=== PATIENT | male | born 1980 | race Caucasian/White ===

== ENCOUNTER → 2018-08-12 | Outpatient (CLI) | payer OTHER | LOC: COL.RAD 07-19 07:30 | DX: M99.71 Connective tissue and disc stenosis of intervertebral foramina of cervical region (principal); M47.22 Other spondylosis with radiculopathy, cervical region; M48.02 Spinal stenosis, cervical region ==

== ENCOUNTER → 2018-09-07 | Outpatient (CLI) | payer OTHER | LOC: MHCPAIN 14:18 | DX: G89.29 Other chronic pain (principal); M54.12 Radiculopathy, cervical region; M47.812 Spondylosis without myelopathy or radiculopathy, cervical region; M48.02 Spinal stenosis, cervical region | CPT/HCPCS: G0463 ==

== ENCOUNTER 2018-11-25 17:39 | Emergency (ER) | payer OTHER ==
[~2018-11-25] VITALS: Ht 167.6 cm; Wt 68.6 kg
[2018-11-25 17:42] VITALS: TEMP 98
[2018-11-25] MEDS ORDERED: PRINIVIL20 MG PO (18:07)
[2018-11-25] MEDS ORDERED: ANTIVERT 25MG25 MG PO (18:52)
[2018-11-25 19:42] LABS: BASO # 0.1 (0.0-0.2); BASO % 0.9 % (0.0-2.0); EOS # 0.1 (0.0-0.7); EOS % 1.1 % (0-4.0); GRAN # 5.5 (1.4-6.5); GRAN % 54.6 % (42.2-75.2); HEMATOCRIT 45.2 % (42.0-52.0); LYMPH # 3.1 (1.2-3.4); LYMPH % 30.4 % (20.0-51.0); MEAN CELL VOLUME 85 fl (80.0-100.0); MEAN CORPUSCULAR HEMOGLOBIN 28 pg (27.0-31.0); MEAN CORPUSCULAR HGB CONC 33 g/dl (33.0-37.0); MEAN PLATELET VOLUME 10.4 fl (7.4-10.4); MONO # 1.1 (0.1-0.6); MONO % 11.1 % (1.7-9.3); PLATELET COUNT 321 K/mm3 (130-400); RED BLOOD COUNT 5.31 M/mm3 (4.20-5.60)
[2018-11-25 20:17] VITALS: BP 141/92; PULSE 89
[2018-11-25 20:21] LABS: ANION GAP 7 mmol/L (7-16); BLOOD UREA NITROGEN 11 mg/dL (9-20); C-REACTIVE PROTEIN < 0.5 mg/dL (0.0-0.9); CALCIUM 9.5 mg/dL (8.4-10.2); CARBON DIOXIDE 28 mmol/L (22-30); CHLORIDE 102 mmol/L (98-107); CREATININE, serum 1.03 mg/dL (0.66-1.25); GLUCOSE 90 mg/dL (74-106); POTASSIUM 4.6 mmol/L (3.4-5.0); SODIUM 137 mmol/L (137-145)
== END 2018-11-25 20:22 | disposition home or self-care (01) ==
LOC: COL.ER 17:39
PROVIDERS: Emergency Medicine
DX: R51 Headache (principal); R42 Dizziness and giddiness; Z86.69 Personal history of other diseases of the nervous system and sense organs
CPT/HCPCS: Q9967

== ENCOUNTER → 2019-01-04 | Outpatient (CLI) | payer OTHER ==
[~2019-01-04] MED LIST: ANTIVERT 25MG25 MG PO; PRINIVIL20 MG PO
== END ==
LOC: MHCPAIN 12:15
DX: G89.29 Other chronic pain (principal); R51 Headache
CPT/HCPCS: G0463

== ENCOUNTER 2019-08-21 20:03 | Emergency (ER) | payer OTHER ==
[~2019-08-21] VITALS: Ht 167.6 cm; Wt 68.2 kg
[2019-08-21 20:21] VITALS: TEMP 98.7
[2019-08-21 21:10] LABS: COLLECTION METHOD CLEAN CATCH
[2019-08-21 21:17] LABS: MUCOUS Present /lpf; PH 5 (5-8); SQUAMOUS EPITHELIAL None Seen /hpf; URINE APPEARANCE Clear; URINE BACTERIA None Seen /hpf; URINE BILIRUBIN Negative (NEGATIVE); URINE BLOOD Negative (NEGATIVE); URINE COLOR Yellow; URINE GLUCOSE Negative (NEGATIVE); URINE KETONE 1+ (NEGATIVE); URINE LEUKOCYTE ESTERASE Negative (NEGATIVE); URINE NITRATE Negative (NEGATIVE); URINE PROTEIN(semi-quant) Negative (NEGATIVE); URINE RBC 0-2 /hpf; URINE UROBILINOGEN Negative (NEGATIVE); URINE WBC 0-2 /hpf
[2019-08-21 21:20] LABS: BASO # 0.1 (0.0-0.2); BASO % 0.7 % (0.0-2.0); EOS % 0.2 % (0-4.0); GRAN # 9.2 (1.4-6.5); GRAN % 71.9 % (42.2-75.2); HEMATOCRIT 47.6 % (42.0-52.0); HEMOGLOBIN 15.9 g/dl (13.5-18.0); LYMPH # 2.2 (1.2-3.4); LYMPH % 17.5 % (20.0-51.0); MEAN CELL VOLUME 84 fl (80.0-100.0); MEAN CORPUSCULAR HEMOGLOBIN 28 pg (27.0-31.0); MEAN CORPUSCULAR HGB CONC 33 g/dl (33.0-37.0); MEAN PLATELET VOLUME 9.9 fl (7.4-10.4); MONO % 8.2 % (1.7-9.3); PLATELET COUNT 380 K/mm3 (130-400); RED BLOOD COUNT 5.67 M/mm3 (4.20-5.60); REDCELL DISTRIBUTION WIDTH-CV 13.1 % (11.5-14.5)
[2019-08-21 21:31] LABS: ALANINE AMINOTRANSFERASE 56 U/L (21-72); ALBUMIN 4.9 gm/dL (3.5-5.0); ALKALINE PHOSPHATASE 74 U/L (50-136); ANION GAP 12 mmol/L (7-16); AST,SGOT 54 U/L (15-37); BILIRUBIN,TOTAL 0.8 mg/dL (0.0-1.0); BLOOD UREA NITROGEN 14 mg/dL (9-20); CALCIUM 9.6 mg/dL (8.4-10.2); CARBON DIOXIDE 22 mmol/L (22-30); CHLORIDE 104 mmol/L (98-107); CREATININE, serum 1.01 (0.66-1.25); GLUCOSE 95 mg/dL (74-106); LIPASE 54 U/L (23-300); PHOSPHOROUS 3.5 mg/dL (2.5-4.5); POTASSIUM 4.1 mmol/L (3.4-5.0); SODIUM 138 mmol/L (137-145); TOTAL PROTEIN 8.2 gm/dL (6.4-8.2)
[2019-08-21 21:34] LABS: ALCOHOL(ethanol),MEDICAL < 10 mg/dL; C-REACTIVE PROTEIN < 0.5 mg/dL (0.0-0.9)
[2019-08-21 21:45] LABS: TRICYCLIC ANTIDEPRESS URINE NEGATIVE
[2019-08-21 22:19] VITALS: BP 130/90; PULSE 90
== END 2019-08-21 22:20 | disposition home or self-care (01) ==
LOC: COL.ER 20:03
PROVIDERS: Emergency Medicine
DX: F10.10 Alcohol abuse, uncomplicated (principal); R51 Headache; I10 Essential (primary) hypertension
CPT/HCPCS: J7030

== ENCOUNTER → 2020-01-11 | Outpatient (CLI) | payer OTHER | LOC: COL.RAD 06:58 | DX: R10.11 Right upper quadrant pain (principal); Z90.49 Acquired absence of other specified parts of digestive tract; Z90.89 Acquired absence of other organs ==

== ENCOUNTER 2020-09-12 09:07 | Day surgery (SDC) | payer OTHER ==
[~2020-09-12] VITALS: Ht 167.6 cm; Wt 71.5 kg
[~2020-09-12 09:07] MED LIST changes: +AVAPRO TAB150 MG/TAB PO; +PROPECIA1 MG PO; +TEMOVATE50TS TOP
[2020-09-12 10:11] VITALS: BP 133/92; PULSE 91; TEMP 98.2
[2020-09-12 11:57] VITALS: BP 134/57; PULSE 88; TEMP 98
[2020-09-12 12:00] VITALS: BP 127/80; PULSE 88
--- NOTE | 2020-09-12 12:08 | NUR ---
PT RETURNED FROM OR AWAKE, SLEEPY. DENIES PAIN OR NAUSEA AT THIS TIME. DRESSING DRY TO LEFT TOE, SHOE IN PLACE. LUNGS CLEAR, HRR, BOWEL SOUNDS PRESENT. WILL CONT TO MONIOR.
[2020-09-12 12:15] VITALS: BP 127/80; PULSE 88
[2020-09-12 12:30] VITALS: BP 131/66; PULSE 86
--- NOTE | 2020-09-12 13:27 | NUR ---
PT TOLERATING WATER AND CRACKERS WELL, MOM PRESENT IN THE ROOM WITH PATIENT. DENIES PAIN OR NAUSEA AT THIS TIME. WILL CONT TO MONITOR.
--- NOTE | 2020-09-12 13:29 | NUR ---
PT UP TO THE BATHROOM WITH X1 ASSIST. REMINDED PT TO KEEP WEIGHT ON THE LEFT HEEL WHEN UP AMBULATING TO THE BATHROOM OR KITCHEN WHEN AT HOME. CONTINUES TO DENY PAIN OR NAUSEA.
--- NOTE | 2020-09-12 13:32 | NUR ---
PT ORIENTATED X3, DENIES PAIN OR NAUSEA AT THIS TIME. TOLERATED FOOD AND FLUIDS, UP TO VOIDD WITHOUT DIFFICULTY. DISMISSAL INSTRUCTIONS EXPLAINED TO PATIENT, PT VOICES UNDERSTANDING. DIMISSAL INSTRUCTIONS SIGNED. PT TAKEN OUT OF FACILITY PER WC TO PT VEHICLE. MOM DRIVING.
== END 2020-09-12 13:00 | disposition home or self-care (01) ==
LOC: SDCO 09:07
DX: M77.42 Metatarsalgia, left foot (principal); M77.52 Other enthesopathy of left foot and ankle; L40.9 Psoriasis, unspecified; I10 Essential (primary) hypertension; M54.12 Radiculopathy, cervical region; M16.0 Bilateral primary osteoarthritis of hip; H00.015 Hordeolum externum left lower eyelid; J01.90 Acute sinusitis, unspecified; L65.9 Nonscarring hair loss, unspecified; Z79.899 Other long term (current) drug therapy; K21.9 Gastro-esophageal reflux disease without esophagitis
CPT/HCPCS: J0690; J1885; J2704; J3010; J7120

== ENCOUNTER 2023-12-06 21:58 | Emergency (ER) | payer OTHER ==
[~2023-12-06] VITALS: Ht 167.6 cm; Wt 72.7 kg
[~2023-12-06 21:58] MED LIST changes: +MOTRIN 600600 MG/TAB PO; +NORCO 325 MG-51 TAB PO
[2023-12-06 22:05] VITALS: TEMP 97.1
[2023-12-06] MEDS ORDERED: Ketorolac 30 MG/ML VIAL IV ONE (22:45)
[2023-12-06] MEDS ORDERED: Cyclobenzaprine 10 MG TAB PO ONE (22:45)
[2023-12-06 22:56] LABS: ALANINE AMINOTRANSFERASE 135 U/L (0-55); ALBUMIN 4.3 gm/dL (3.5-5.0); ALKALINE PHOSPHATASE 66 U/L (40-150); ANION GAP 11 mmol/L (7-16); AST,SGOT 60 U/L (5-34); BILIRUBIN,TOTAL 0.3 mg/dL (0.2-1.2); BLOOD UREA NITROGEN 16 mg/dL (9-21); C-REACTIVE PROTEIN 0.05 mg/dL (0.00-0.50); CALCIUM 9.4 mg/dL (8.4-10.2); CARBON DIOXIDE 22 mmol/L (22-29); CHLORIDE 107 mmol/L (98-107); CREATININE, serum 1.23 mg/dL (0.72-1.25); GLUCOSE 121 mg/dL (70-99); LIPASE 24 U/L (8-78); POTASSIUM 3.6 mmol/L (3.5-4.5); SODIUM 140 mmol/L (136-145); TOTAL PROTEIN 7.2 gm/dL (6.2-8.1)
[2023-12-06 23:07] LABS: TROPONIN-I < 0.010 ng/mL (0.00-0.033)
[2023-12-06 23:50] LABS: BASO # 0.1 K/mm3 (0.0-0.2); BASO % 1.3 % (0.0-2.0); EOS # 0.3 K/mm3 (0.0-0.7); EOS % 2.7 % (0.0-4.0); GRAN # 4.4 K/mm3 (1.4-6.5); GRAN % 39.7 % (42.2-75.2); HEMATOCRIT 44.4 % (42.0-52.0); LYMPH # 4.9 K/mm3 (1.2-3.4); LYMPH % 44.9 % (20.0-51.0); MEAN CELL VOLUME 82 fl (80.0-100.0); MEAN CORPUSCULAR HEMOGLOBIN 28 pg (27-31); MEAN CORPUSCULAR HGB CONC 34 g/dl (33.0-37.0); MEAN PLATELET VOLUME 11.5 fl (7.4-10.4); MONO # 1.1 K/mm3 (0.1-0.6); MONO % 10.1 % (1.7-9.3); PLATELET COUNT 372 K/mm3 (130-400); RED BLOOD COUNT 5.39 M/mm3 (4.20-5.60); REDCELL DISTRIBUTION WIDTH-CV 13.4 % (11.5-14.5)
[2023-12-07] MEDS ORDERED: NAPROSYN500 MG PO (00:14)
[2023-12-07] MEDS ORDERED: FLEXERIL 1010 MG/TAB PO (00:14)
[2023-12-07 00:26] VITALS: BP 127/79; PULSE 81
== END 2023-12-07 00:26 | disposition home or self-care (01) ==
LOC: COL.ER 21:58
PROVIDERS: Nurse Practitioner Primary Care
DX: R07.89 Other chest pain (principal); M62.838 Other muscle spasm; R74.01 Elevation of levels of liver transaminase levels
CPT/HCPCS: J1885